=== PATIENT | female | born 1985 | race Hispanic/Latino ===

== ENCOUNTER 2020-12-22 08:00 | Day surgery (SDC) | payer OTHER ==
[~2020-12-22] VITALS: Ht 167.6 cm; Wt 65.9 kg
--- NOTE | 2020-12-22 11:32 | NUR ---
12/22/20 1132 Louise Cantu 1123 PATIENT ARRIVES TO PACU UNRESPONSIVE TO PAIN, ORAL AIRWAY IN PLACE. RESP EVEN AND UNLABORED, MASK AT 6 LITERS.
[2020-12-22] MEDS ORDERED: MOTRIN IB200 MG PO (11:40)
[2020-12-22] MEDS ORDERED: PERCOCET 7.5-31 EACH PO (11:40)
[2020-12-22] MEDS ORDERED: TYLENOL EXTRA500 MG PO (11:40)
--- NOTE | 2020-12-22 12:35 | NUR ---
1205: PATIENT BACK IN DAY SURGERY ROOM FROM PACU. RATES PAIN 4/10. ABDOMINAL SITES X 4 WITH STERI STRIPS WITH SCANT AMOUNT OF RED DRAINAGE. VS CHECKED. IV SITE WNL. SCDs ON. MOTHER AT BEDSIDE. ICE WATER PLACED AT BEDSIDE. PATIENT GIVEN CRACKERS AND JELLO TO EAT A FEW BITES BEFORE TAKING PAIN MEDICATION. CALL LIGHT WITHIN REACH. 1215: PATIENT MEDICATED FOR PAIN WITH 1 TAB OF PERCOCET AFTER EATING SOME JELLO. MOTHER AT BEDSIDE. CALL LIGHT WITHIN REACH.
--- NOTE | 2020-12-22 13:16 | NUR ---
1255: VS CHECKED. PATIENT STILL REPORTS HAVING PAIN. ASKS WHEN SHE CAN HAVE NEXT PAIN PILL. EDUCATED PATIENT THAT POST SURGERY THERE WILL BE SOME PAIN, AND THAT PAIN FREE IS NOT REALISTIC. TOLD PATIENT I WOULD RETURN AT 1310 TO REASSESS PAIN AND POSSIBLY GIVE SECOND PAIN PILL. PATIENT DROWSY. MOTHER AT BEDSIDE. CALL LIGHT WITHIN REACH. 1313: CHECKED PATIENT. PATIENT SLEEPING. MOTHER AT BEDSIDE. MOTHER WILL NOTIFY RN IF PATIENT WAKES UP AND NEEDS SECOND PAIN PILL. CALL LIGHT WITHIN REACH.
--- NOTE | 2020-12-22 14:06 | NUR ---
1340: PATIENT ASSISTED OOB AND TO BATHROOM. PATIENT BECAME DIZZY ONCE UP IN A SITTING POSITION. PATIENT GIVEN TIME TO SIT ON SIDE OF BED FOR DIZZINESS TO RESOLVE. DIZZINESS IMPROVED AND PATIENT WALKED FROM BED TO BATHROOM WITH ASSISTANCE. GAIT STEADY. VOID WITHOUT DIFFICULTY. RED DRAINAGE COMING FROM UMBILICAL SITE AFTER WALKING TO BATHROOM. PATIENT ASSISTED BACK TO ROOM. PATIENT BECAME NAUSEATED ONCE BACK IN ROOM. GIVEN EMESIS BAG. PATIENT DID NOT VOMIT, BUT DID BELCH A LOT. PATIENT LAID BACK DOWN IN BED. STATES NAUSEA IMPROVING. 1405: PATIENT REQUESTS TO HAVE SECOND PAIN PILL. RATES PAIN 6/10 IN UPPER ABDOMEN. PATIENT ATE 1 CRACKER AND GIVEN APPLESAUCE. MEDICATED WITH SECOND PILL OF PERCOCET. MOTHER AT BEDSIDE. CALL LIGHT WITHIN REACH.
--- NOTE | 2020-12-22 14:21 | NUR ---
LE 1355: ONCE PATIENT BACK IN BED FROM BATHROOM. ABDOMEN CLEANED OF BLOODY DRAINAGE FROM UMBILICAL SITE WITH WARM WET WASHCLOTH. UMBILICAL SITE REINFORCED WITH 4X4 GUAZE AND MEDIPORE TAPE.
--- NOTE | 2020-12-22 15:12 | NUR ---
CHECKED PATIENT. PATIENT SLEEPING. AWAKENED EASILY. STATES PAIN MED "HELPED." WILL LET PATIENT REST SOME MORE. WILL CHECK BACK AROUND 1530. MOTHER AT BEDSIDE. CALL LIGHT WITHIN REACH.
--- NOTE | 2020-12-22 16:10 | NUR ---
1540: PATIENT ASSISTED TO SIT ON SIDE OF BED. PATIENT BECAME DIZZY UPON SITTING ON SIDE OF BED. PATIENT GIVEN TIME TO SEE IF DIZZINESS WOULD PASS. AFTER A FEW MINUTES, PATIENT THEN C/O NAUSEA. ASSISTED PATIENT TO LAY BACK DOWN IN BED. 1600: CALL PLACED TO DR. GUSTAFSON. RECEIVED ORDERS FROM DR. GUSTAFSON FOR ZOFRAN ODT. ALSO GIVEN ORDER TO CALL IN TO PATIENT'S PHARMACY ZOFRAN ODT 4MG TABLETS, 1 TABLET Q 6 HOURS PRN N/V. DISPENSE 20, WITH 1 REFILL. THIS PRESCRIPTION WAS CALLED IN TO [facility].
--- NOTE | 2020-12-22 16:24 | NUR ---
PATIENT AWAKENDED FOR ZOFRAN ODT ADMIN. RATES PAIN 4/10. WILL GIVE TIME FOR ZOFRAN TO TAKE EFFECT, THEN TRY TO GET OOB AGAIN. MOTHER AT BEDSIDE. CALL LIGHT WITHIN REACH.
--- NOTE | 2020-12-22 17:27 | NUR ---
1700: PT UP TO SIDE OF BED WITH RN ASSIST, STATES "SOME DIZZINESS" AND IS ENCOURAGED TO MOVE AT OWN PACE. PT STATES PAIN BETWEEN SHOULDER BLADES AND IS EDUCATED ABOUT REFERRED GAS PAIN, ENCOURAGED TO AMBULATE HALLWAY. PT AMBULATES HALLWAY SLOWLY WITH TWO RN ASSIST, STATES THAT BACK FEELS A LITTLE BETTER BUT REQUESTS EMESIS BAG. PT BELCHES AND SPITS INTO BAG, PROVIDED ALCOHOL SWAB TO INHALE. PT ABLE TO AMBULATE BACK TO DS RM 5 AND REQUESTS APPLESAUCE AND CRACKERS. PT TOLERATES PO AND WOULD LIKE TO TRY TO GET DRESSED TO DC HOME. WHILE DRESSING, PT HAS APPROX 300 MLS GREEN EMESIS AND SITS DOWN ON BED.
--- NOTE | 2020-12-22 17:45 | NUR ---
1730: DR. GUSTAFSON NOTIFIED OF PT STATUS AND VERBALLY ORDERS FOR PT TO RECEIVE IV FLUIDS AND LIQUIDS WITH EXTENDED RECOVERY ON MED SURG. ORDERS IN [facility] AND [facility]AT FINISHER AWARE OF CHANGE. PT PROVIDED CLEAN GOWN PRIOR TO TRANSFER.
--- NOTE | 2020-12-22 18:32 | NUR ---
PT TRANSFERRED TO MED SURG RM 108 VIA STRETCHER WITH MOTHER, PT TOLERATES MOVEMENT WITHOUT ANY NAUSEA/EMESIS. PT ABLE TO SLOWLY SLIDE SELF FROM STRETCHER TO BED. VERBAL REPORT GIVEN TO CRISTEL BAUTISTA RN.
--- NOTE | 2020-12-22 18:35 | NUR ---
PT ARRIVED VIA STRETCHER. PT APPEARS TO HAVE NO NAUSEA AT THIS TIME AND IS ABLE TO SCOOT HERSELF FROM STRETCHER TO BED. PTS MOTHER TO ACCOMPANY PT AT THIS TIME. THIS RN RECIEVED REPORT FROM RAMIRO KAN.
--- NOTE | 2020-12-22 18:45 | NUR ---
THIS RN CALLED MD TO CLARIFY ORDERS. ORDERS CLARIFED AND PLACED IN CHART PER VERBAL ORDER OVER THE PHONE.
--- NOTE | 2020-12-22 18:45 | NUR ---
PT HAS 4 LAP SITES AND ARE REINFORCED WITH GAUZE AND TAPE AT THIS TIME. ALL APPEAR TO BE C/D/I. THIS RN PROVIDED PT WITH AN ICE PACK FOR COMFORT AND A WARM BLANKET FOR COMFORT
--- NOTE | 2020-12-22 19:10 | NUR ---
RECEIVED REPORT FROM CRISTEL. SHE STATED THAT SHE HAD JUST GIVEN PT ZOFRAN FOR VOMITING. PT MOTHER AT BEDSIDE, NICOLLE.
--- NOTE | 2020-12-22 19:20 | NUR ---
CHECKED ON PT. DENIED NAUSEA AT THIS TIME, NO PAIN. LAP SITES COVERED WITH GAUZE AND TAPE, NO DRAINAGE. ENCOURAGED A SIP WATER, TAKEN.
--- NOTE | 2020-12-22 19:45 | NUR ---
GIVEN RED JELLO. HAS NOT BEEN UP YET SINCE 1900. AGAIN, DENIES NEEDS. NO NAUSEA.
--- NOTE | 2020-12-22 20:15 | NUR ---
CALL LIGHT ANSWERED. SBA TO RESTROOM FOR VOID, STEADY ON FEET AFTER SITTING AT SIDE OF BED FOR A COUPLE MINUTES DUE TO DIZZINESS. pt BACK IN BED. C/O SOME NAUSEA. REQUEST TO WAIT FOR MEDICATIONS. PRIMARY RN BURT NOTIFIED. IVF INFUSING WNL. CALL LIGHT IN REACH.
--- NOTE | 2020-12-22 20:50 | NUR ---
TO PT ROOM, PT VOMITED LIGHT GREEN LIQUID, RED JELLO STILL PRESENT, VERY LITTLE TAKEN. NOTIFIED DR GUSTAFSON OF PT CONDITION, ORDERS RECEIVED FOR PHENERGAN, REPEATED BACK. ALSO PLAN FOR PT TO STAY THE NIGHT, PT AND MOM WERE CONCERNED ABOUT DISCHARGING HOME AND HAVING TO RETURN TO THE ED. WILL PASS PT TO [facility].
--- NOTE | 2020-12-22 21:21 | NUR ---
PRN NAUSEA MEDICATION ADMINISTERED AT THIS TIME PER POLICY. IV SITE FLUSHED WNL. IVF NOW INFUSING. ASSESSMENT COMPLETE. BOWEL TONES HYPOACTIVE, ABD SOFT, DRESSING CDI. VSS. SBA TO RESTROOM FOR VOID AND BACK TO BED. SCDS APPLIED. FAMILY IN ROOM. ICE WATER AND JELLO IN REACH. CALL LIGHT NEXT TO pt.
--- NOTE | 2020-12-22 22:19 | NUR ---
CHECKED ON pt. RESTING IN BED WITH EYES CLOSED, BREATHING UNLABORED. IVF INFUSING WNL. SCDS ON. BED ON COUCH MADE FOR MOTHER. NO ADDITIONAL NEEDS.
--- NOTE | 2020-12-22 22:47 | NUR ---
CALL LIGHT ANSWERED. SBA TO RESTROOM FOR VOID AND BACK TO BED. pt ABLE TO BRACE ABD WITH FOLDED DRAW SHEET. DENIES ANY PAIN. C/O "DROWSY AND DIZZINESS". SCDS ON. CALL LIGHT IN REACH. MOTHER IN ROOM.
--- NOTE | 2020-12-23 02:19 | NUR ---
pt SLEEPING, AWAKENS TO VOICE. VSS. ASSESSMENT COMPLETE. ABD SOFT, LAP SITES CDI WITH GAUZE OVER. BOWEL TONES HYPOACTIVE. IVF INFUSING WNL. ICE PACK PROVIDED. pt DENIES ANY PAIN. DENIES NAUSEA. DENIES TOILETING NEEDS. ICE WATER REFILLED AND IN REACH. CALL LIGHT IN REACH.
--- NOTE | 2020-12-23 04:35 | NUR ---
NEW BAG IVF INFUSING WNL. pt RESTING IN BED, AWAKE WHEN RN ENTERS ROOM. NO REQUESTS AT THIS TIME.
--- NOTE | 2020-12-23 06:52 | NUR ---
pt AWAKE RN ENTERS ROOM. SBA TO RESTROOM FOR VOID. RATES PAIN 5/10 "DISCOMFORT" WITH SITTING UP IN BED. GAIT STEADY. ORAL CARE COMPLETE BY pt. VSS. BREAKFAST MENU PROVIDED. ICE WATER PROVIDED. ICE PACK FOR ABDOMEN. pt REFUSES PAIN MEDICATION AT THIS TIME, REQUESTING TO WAIT UNTIL SHE EATS BREAKFAST. CALL LIGHT IN REACH.
--- NOTE | 2020-12-23 07:24 | NUR ---
this rn received report from venkat gruber. pt states that she is doing well this am, pain 4/10- toleralbe, and states no nausea this am and is ready to attempt breakfast
--- NOTE | 2020-12-23 07:40 | NUR ---
Spoke with pt and she lives in a 1 story home with her spouse. No childr en. Mom is going home to stay with her. Pt denies needs or concerns. Pt states she is already feeling better once her gallbladder was out. Denies needs.
[2020-12-23] MEDS ORDERED: PROMETHAZINE HC25 M1 PO (08:25)
--- NOTE | 2020-12-23 08:28 | OR ---
[facility] [address] [place], [place] [address] Signed DATE OF OPERATION: 12/22/2020 SURGEON: Lv Gustafson MD PREOPERATIVE DIAGNOSIS: Chronic calculous cholecystitis. POSTOPERATIVE DIAGNOSIS: Chronic calculous cholecystitis. PROCEDURE: Laparoscopic cholecystectomy with intraoperative cholangiogram. ANESTHESIA: General endotracheal, Joseph Alvarenga CRNA INDICATIONS: This 35-year-old woman is a patient of KATLYN Christiansen. She has had recurrent bouts of epigastric and right subcostal pain. Her initial episode was quite severe and lasting several hours. She was evaluated at the [facility] in [place] and a gallbladder ultrasound performed which showed multiple gallstones with no sign of pericholecystic fluid or gallbladder wall thickening. Since that time, she has had recurrent symptoms completely consistent with biliary disease. She is admitted at this time to undergo cholecystectomy preferred by laparoscopic approach. She understands the risks of bleeding, infection, bile duct injury, need for open procedure, failure to cure her symptoms and other unforeseen complications. She understands and she wished to proceed. FINDINGS: The gallbladder was chronically inflamed. Multiple gallstones were noted within the gallbladder. Intraoperative cholangiogram was normal. There were no other findings of concern. DESCRIPTION OF PROCEDURE: The patient was brought to the operating room, given a general endotracheal anesthetic. Preoperative antibiotic Ancef was given. Sequential compression device stockings used and heparin subcutaneously administered. The abdomen was prepared with chlorhexidine solution and draped sterilely. An infraumbilical incision was made and using an open Alize cannula technique pneumoperitoneum was achieved to a level of 14 mmHg of carbon Electronically Signed By: LV GUSTAFSON MD 12/23/20 0828 PATIENT NAME: JAZLYN JEFFRIES OPERATIVE REPORT DATE OF : 85 REPORT #: [id number] PHYSICIAN: LV GUSTAFSON MD PCP: BISI KAYE PAC REPORT IS CONFIDENTIAL AND NOT TO BE RELEASED WITHOUT AUTHORIZATION [facility] [address] [place], [place] [address] Signed dioxide gas. Intraabdominal inspection showed no sign of ascites or carcinomatosis. The liver appeared normal. The gallbladder was obscured from view at that point. Three additional trocars were placed in usual configuration in the subxiphoid, right midclavicular, and right anterior axillary line. The gallbladder was then elevated cephalad, showing chronic inflammatory change of the gallbladder, but no sign of acute inflammation proper. Using blunt electrocautery dissection, the triangle of Calot was dissected free identifying initially a dominant cystic artery. This was doubly clipped and divided. This revealed the underlying cystic duct itself. Additional dissection showed good clarity of the cystic duct in relation to the surrounding structures. A clip was applied across the gallbladder cystic duct junction and a transverse choledochotomy made in the cystic duct. Egress of clear bile was noted as well as a few grains of bilious material. Using the Ugalde-type cholangiocatheter, intraoperative cholangiography was undertaken showing free flow of contrast in the biliary tree with prompt emptying into the duodenum. The catheter was removed. The cystic duct was triply clipped and divided. The gallbladder was then dissected free in a retrograde fashion using electrocautery. The gallbladder was not entered. It was placed in an endobag and extracted through the infraumbilical port site without problem. The gallbladder was opened on the back table and found to have multiple yellow multi size gallstones. Irrigation was undertaken of the subhepatic space. There was good hemostasis and no sign of problem. The trocars removed under direct visualization after aspiration and irrigation of irrigation fluid. Attention was turned towards closure. The infraumbilical fascial incision was reapproximated with interrupted 0 Vicryl suture. A 20 mL of 0.25% Marcaine with epinephrine was injected into the trocar sites. The skin was then closed with interrupted 3-0 Vicryl. Steri-Strips were applied. The patient was ultimately extubated, transferred to the recovery room in good condition having suffered no complication. Sponge, needle, and instrument counts were reported as correct x3. MD ABBY Anna/JOSEPHL /[id number] cc: Bisi Kaye PA-C Electronically Signed By: LV GUSTAFSON MD 12/23/20 0828 PATIENT NAME: JAZLYN JEFFRIES OPERATIVE REPORT DATE OF : 85 REPORT #: [id number] PHYSICIAN: LV GUSTAFSON MD PCP: BISI KAYE PAC REPORT IS CONFIDENTIAL AND NOT TO BE RELEASED WITHOUT AUTHORIZATION [address] [address] Signed Copies: BISI KAYE ~ Electronically Signed By: LV GUSTAFSON MD 12/23/20 0828 PATIENT NAME: JAZLYN JEFFRIES OPERATIVE REPORT DATE OF : 85 REPORT #: [id number] PHYSICIAN: VL GUSTAFSON MD PCP: BISI KAYE REPORT IS CONFIDENTIAL AND NOT TO BE RELEASED WITHOUT AUTHORIZATION
--- NOTE | 2020-12-23 08:30 | NUR ---
PATIENT IS SITTING IN BED EATING BREAKFAST WITH MOM IN ROOM. I GOT PATIENT SOME JAM AND SHE DOES NOT NEED ANYTHING ELSE AT THIS TIME. CALL LIGHT IN REACH.
--- NOTE | 2020-12-23 09:00 | NUR ---
THIS RN IN PTS ROOM TO CHECK ON PT. PT STATES THAT SHE IS FEELING GOOD AFTER EATING BREAKFAST AND IS READY TO TRY IBUPROPHEN. PTS IV IS GOOD WITH WNL DRESSING PT STATES THAT HER BOWELS ARE STRATING TO "GRUMBLE" PT STATES THAT SHE IS STARTING TO GET SOME TIGHTNESS IN HER CHEST- THIS RN EDUCATED PT ABOUT NEEDING TO MOVE AND WALK DUE TO THE AIR THAT IS INSTILLED INTO THE ABDOMEN DURING SURGERY
== END 2020-12-23 10:05 | disposition home or self-care (01) ==
LOC: DS 08:00 → MS 18:15 → DS 12-23 10:05
PROVIDERS: ATTEND Surgery
PROC: BF03YZZ Plain Radiography of Gallbladder and Bile Ducts using Other Contrast (ICD-10-PCS; 2020-12-22)
PROC: 0FT44ZZ Resection of Gallbladder, Percutaneous Endoscopic Approach (ICD-10-PCS; principal; 2020-12-22 08:45)
DX: K80.10 Calculus of gallbladder with chronic cholecystitis without obstruction (principal)
CPT/HCPCS: 00790; 74300; A9270; J0131; J0330; J0690; J1100; J1644; J1885; J2405; J2550; J2704; J2765; J3010; J7121; Q9967